=== PATIENT | female | born 2000 | race Caucasian/White ===

== ENCOUNTER 2018-06-25 20:40 | Emergency (ER) | payer BC ==
[2018-06-25] MEDS: HYDROCODONE/APAP (10/325) TAB PO ×2 (22:27→22:30)
== END 2018-06-26 00:17 | disposition home or self-care (01) ==
LOC: E/R 06-26 00:17
DX: R07.89 Other chest pain (principal)
CPT/HCPCS: 71045; 93005; 99284-25